=== PATIENT | male | born 1960 | race Caucasian/White ===

== ENCOUNTER 2017-01-19 14:40 | Emergency (ER) | payer MEDICARE ==
[~2017-01-19] VITALS: Ht 180.3 cm; Wt 90.9 kg
[~2017-01-19 14:40] MED LIST: CHLO100T24 PO; TRAZ150 PO
[2017-01-19] MEDS ORDERED: QUET25TA PO (14:49)
[2017-01-19] MEDS ORDERED: IBUPROFEN 800 MG TABLET PO ONE (15:15)
[2017-01-19] MEDS ORDERED: SULFAMETHOX/TRIMETH DS 800-160 MG/TABLET PO ONE (15:15)
[2017-01-19 15:24] VITALS: BP 115/67
== END 2017-01-19 15:25 | disposition home or self-care (01) ==
LOC: EDBD 14:41 → EMS 14:41
DX: L03.313 Cellulitis of chest wall (principal); F17.210 Nicotine dependence, cigarettes, uncomplicated; Z87.891 Personal history of nicotine dependence
CPT/HCPCS: 99283

== ENCOUNTER 2018-07-24 09:53 | Emergency (ER) | payer MEDICARE ==
[~2018-07-24] VITALS: Ht 180.3 cm; Wt 84.1 kg
[~2018-07-24 09:53] MED LIST changes: -CHLO100T24 PO; +QUET25TA PO
[2018-07-24] MEDS ORDERED: CHLO100T24 PO (09:58)
[2018-07-24 10:21] VITALS: BP 150/101
== END 2018-07-24 12:11 | disposition home or self-care (01) ==
LOC: EMS 09:53
DX: F20.9 Schizophrenia, unspecified (principal); F17.210 Nicotine dependence, cigarettes, uncomplicated
CPT/HCPCS: 99406